=== PATIENT | female | born 1950 | race Caucasian/White ===

== ENCOUNTER → 2022-05-29 12:34 | Outpatient (BNVA) | payer MEDICARE, OTHER, SELFPAY | PROVIDERS: PCP Internal Medicine; Referring Provider Family Medicine; Visit Provider Internal Medicine Cardiovascular Disease | DX: R69 Illness, unspecified (principal) | CPT/HCPCS: 93005; 99203 ==

== ENCOUNTER → 2022-05-29 12:34 | Outpatient (BNVA) | payer MEDICARE, OTHER, SELFPAY | PROVIDERS: PCP Internal Medicine; Referring Provider Family Medicine; Visit Provider Internal Medicine Cardiovascular Disease | DX: R00.2 Palpitations (principal); I10 Essential (primary) hypertension | CPT/HCPCS: 93005; 99203 ==

== ENCOUNTER → 2022-05-29 12:34 | Outpatient (BNVA) | payer MEDICARE, OTHER, SELFPAY | PROVIDERS: PCP Internal Medicine; Referring Provider Family Medicine; Visit Provider Internal Medicine Cardiovascular Disease | DX: R69 Illness, unspecified (principal) ==

== ENCOUNTER 2022-05-29 12:55 | Outpatient (CLI) | payer MEDICARE, OTHER, SELFPAY ==
--- NOTE | 2022-05-29 12:45 | RT.EKG_ITS ---
APPROVED REPORT Exam: Resting ECG Reason for Exam: NPW, Baseline needed Patient Location: O HR:50 bpm ECG Measurements Heart Rate 50 AXIS ND 169 P 63 QRSd 123 QRS -27 QT 423 T 31 QTc 386 Conclusion LAFB Poor R wave progression Sinus bradycardia
== END 2022-05-29 12:56 | disposition home or self-care (01) ==
LOC: DI.CARD 12:55
PROVIDERS: PCP Internal Medicine; Visit Provider Internal Medicine Cardiovascular Disease
DX: I10 Essential (primary) hypertension (principal); R94.31 Abnormal electrocardiogram [ECG] [EKG]; R00.1 Bradycardia, unspecified; R00.2 Palpitations
CPT/HCPCS: 93010

== ENCOUNTER 2023-10-30 12:33 | Emergency (ER) | payer MEDICARE, OTHER, SELFPAY ==
[2023-10-30 12:43] VITALS: BP 163/65; PULSE 77; RESP 18; TEMP 36.8; O2SAT 99
--- NOTE | 2023-10-30 13:00 | DI.CT_ITS ---
Exam(s) CT HEAD WO EXAM: CT HEAD WO CLINICAL HISTORY: frontal headache, r/o bleed/mass. TECHNIQUE: Imaging Protocol: Axial computed tomography images with coronal and sagittal reformatted images were created and reviewed COMPARISON: No exams were available for comparison FINDINGS: There are no skull fractures. There is no fluid in the visualized paranasal sinuses. Calcified and s lightly diminished size right orbital globe noted There is no evidence of intracranial hemorrhage, mass effect, or shift of midline structures. There are no extra-axial fluid collections. The ventricles are not enlarged or shifted and there is no blo od within the ventricular system nor within the basal cisterns. Mild symmetrical bifrontal atrophy noted. IMPRESSION: No acute intracranial findings on this noninfused CT scan of the brain. Mild bifrontal symmetrical atrophy evident. Peripherally calcified and diminished size right orbital globe noted. Left orbit appears unremarkabl e. Called by myself to ER physician RADIATION DOSE DELIVERED: 784.86mGy.cm Total DLP DATA REPOSITORY: All CT scans at this facility are submitted to the National Radiology Data Registry (NRDR) Dose Index Registry (DIR) with the [employer] ([employer]). RADIATION OPTIMIZATION: All CT scans at this facility use at least one of these dose optimization te chniques: automated exposure control; mA and/or kV adjustment per patient size (includes targeted exa ms where dose is matched to clinical indication); or iterative reconstruction.
[2023-10-30] MEDS: methylPREDNISolone SUCC 125 MG VIAL IVP (13:18)
[2023-10-30] MEDS: diphenhydrAMINE 50 MG/ML VIAL 25 MG IVP (13:18)
[2023-10-30] MEDS: Prochlorperazine 10 MG/2 ML VIAL IVP (13:19)
[2023-10-30] MEDS: Acetaminophen 500 MG TAB 1000 MG PO (13:19)
[2023-10-30 13:37] LABS: Abs Immature Grans 0.01 10^3/uL (0.0-0.06); Absolute Basophil Count 0.04 10^3/uL (0.0-0.2); Absolute Eosinophil Count 0.04 10^3/uL (0.0-0.7); Absolute Lymphocyte Count 2.06 10^3/uL (1.2-3.4); Absolute Monocyte Count 0.58 10^3/uL (0.1-0.8); Absolute Neutrophil Count 3.16 10^3/uL (1.2-6.7); Basophils % 0.7; Eosinophils % 0.7; HCT 38.6 % (36.0-46.0); Immature Grans % 0.2; MCH 29.4 pg (27.0-33.0); MCHC 33.7 % (32.0-36.0); MCV 87 fL (80-95); MPV 9.8 fL (8.0-11.0); Monocytes % 9.8; Neutrophils % 53.6; Platelet Count 277 10^3/uL (130-400); RBC 4.42 10^6/uL (3.93-5.22); RDW 13.3 % (11.7-14.6); RDW-SD 42.9 fL; WBC 5.89 10^3/uL (4.4-10.8)
[2023-10-30 13:52] LABS: ALT 37 U/L (14-59); AST 24 U/L (15-37); Albumin 4.3 g/dL (3.4-5.0); Alkaline Phosphatase 75 U/L (46-116); Anion Gap 11.3 mmol/L (3-11); BUN 12 mg/dL (7-18); Bilirubin, Total 0.4 mg/dL (0.2-1.0); CO2 25.7 mmol/L (21.0-32.0); CREATININE 1.1 mg/dL (0.55-1.02); Calcium 9.1 mg/dL (8.5-10.1); Chloride 104 mmol/L (98-107); Glucose 111 mg/dL (74-106); Potassium 3.8 mmol/L (3.5-5.1); Sodium 141 mmol/L (136-145); Total Protein 7.6 g/dL (6.4-8.2)
--- NOTE | 2023-10-30 14:14 | ED.GENADUL_ITS ---
HPI General Date/Time Provider Initiated Documentation: 10/30/23 12:43 . HPI Narrative: 73-year-old female with a past medical history of chronic headaches, who is currently being treated for an ear infection with Augmentin, was past medical history of high cholesterol, diabetes, who is currently on Topamax for migraines. And had previously been on amitriptyline but this had been stopped. Who presents today for evaluation of headache. Patient states that for the last 2 to 3 months she has had a recurrence of her previous headaches. She has had an MRI in the past at [facility] which was relatively unremarkable. Patient states that for the past few weeks she has been having an increase in her headaches, she states that they will occasionally wake her up during the night. She will also have extremely atypical dreams hearing singing amongst other things when these headaches and episodes occur. Patient states that her sleeping has also become erratic after she was given some Valium a few days ago at recent ER visit at [facility]. She did have a workup just the other day at [facility] evaluating for esophagitis, which led to an unremarkable CAT scan and workup otherwise. Patient states that her headache that developed this morning has been longer lasting than normal. It is continued and is present in the front of her head. She denies any significant posterior pain or neck pain. She denies any fever or chills. No trauma. No other complaints at this time. She has been taking the Topamax as directed, as well as baclofen without any significant improvement. Related Data Home Medications Medication Instructions Recorded Confirmed amlodipine 5 mg tablet 10 mg PO DAILY 04/10/22 10/30/23 atorvastatin 10 mg tablet 10 mg PO DAILY 04/10/22 10/30/23 baclofen 5 mg tablet 10 mg PO QID 04/10/22 10/30/23 clonidine HCl 0.2 mg tablet 0.3 mg PO BID 04/10/22 10/30/23 esomeprazole magnesium 20 mg 20 mg PO DAILY 04/10/22 10/30/23 capsule,delayed release metformin 500 mg tablet 500 mg PO BID 05/29/22 10/30/23 Allergies Allergy/AdvReac Type Severity Reaction Status Date / Time diltiazem Allergy Verified 10/30/23 12:52 lisinopril Allergy Verified 10/30/23 12:52 omeprazole Allergy Verified 10/30/23 12:52 pantoprazole Allergy Verified 10/30/23 12:52 Sulfa (Sulfonamide Allergy Verified 10/30/23 12:52 Antibiotics) General Stated Complaint: Headache EDGARDO: 3 Review of Systems All systems reviewed & are unremarkable except as noted in HPI and below Exam Narrative Exam Narrative: 1.Const: Well-nourished, Well-developed, appearing stated age 2.Eyes: Patient's right eye demonstrates exotropia, chronic clouding and atypical pupillary movement. Left eye unremarkable 3.ENT: Atraumatic external nose and ears. Moist MM. Neck: Symmetric, trachea midline, No thyromegaly. Patient demonstrates good movement of cervical neck. There is no nuchal rigidity, no nuchal tenderness. Patient is able to flex the neck without any difficulty or significant pain. Negative Kernig's and Brudzinski sign. No evidence of significant otitis media. No bulging or effusion of the tympanic membranes. 4.CVS: +S1/S2, No murmurs or gallops. Peripheral pulses 2+ and equal in all extremities. Brisk capillary refill in all extremities. 5.RESP: Unlabored respiratory effort. Clear to auscultation bilaterally. No wheezes rales or rhonchi 6.GI: Soft, Nontender/Nondistended, No hepatosplenomegaly. No guarding or rebound. 7.MSK: Normocephalic/Atraumatic, Extremities w/o deformity or ttp No cyanosis or clubbing, Normal movement of all extremities 8.Skin: Warm, Dry. No rashes or lesions. 9.Neuro: room attendant II-XII grossly intact. Sensation grossly intact, no focal neurologic deficits. All 6 cardinal planes of vision are fully intact. No evidence of rotatory or vertical nystagmus. The patient demonstrated a normal [id number], good dexterity. There was no evidence of dysdiadochokinesia. Patient was able to ambulate without difficulty. There was no wide-based gait. Romberg testing was normal. Wlgk-[id number]-ghgm testing was normal. Sensation was intact bilaterally as well as muscle strength bilaterally for all extremities. Patient was able to verbalize butter cup with no slurring, or miss pronunciation. 10.Psych: (AAO) x3. Appropriate mood and affect Course Vital Signs Vital signs: Vital Signs Temperature 36.8 C 10/30/23 12:43 Pulse 77 10/30/23 12:43 Respiratory Rate 18 10/30/23 12:43 Blood Pressure 163/65 H 10/30/23 12:43 Pulse Oximetry 99 10/30/23 12:43 Temperature 36.8 C 10/30/23 12:43 Temperature Source Oral 10/30/23 12:43 Pulse 77 10/30/23 12:43 Respiratory Rate 18 10/30/23 12:43 Respiratory Effort Normal 10/30/23 12:50 Blood Pressure 163/65 H 10/30/23 12:43 Pulse Oximetry 99 10/30/23 12:43 Oxygen Delivery Method Room Air 10/30/23 12:43 Oxygen Flow Rate 0 10/30/23 12:43 Lab/Test Results Lab/Test Results: Laboratory Tests Range/Units 10/30/23 13:25 WBC (4.4-10.8) 10^3/uL 5.89 RBC (3.93-5.22) 10^6/uL 4.42 Hgb (11.2-15.7) g/dL 13.0 Hct (36.0-46.0) % 38.6 MCV (80-95) fL 87 MCH (27.0-33.0) pg 29.4 MCHC (32.0-36.0) % 33.7 RDW (11.7-14.6) % 13.3 Plt Count (130-400) 10^3/uL 277 MPV (8.0-11.0) fL 9.8 Immature Gran % 0.2 Neutrophils % 53.6 Lymphocytes % 35.0 Monocytes % 9.8 Eosinophils % 0.7 Basophils % 0.7 Nucleated RBC % (0.0-0.3) % 0.0 Absolute Neutrophils (1.2-6.7) 10^3/uL 3.16 Absolute Lymphocytes (1.2-3.4) 10^3/uL 2.06 Absolute Monocytes (0.1-0.8) 10^3/uL 0.58 Absolute Eosinophils (0.0-0.7) 10^3/uL 0.04 Absolute Basophils (0.0-0.2) 10^3/uL 0.04 Sodium (136-145) mmol/L 141 Potassium (3.5-5.1) mmol/L 3.8 Chloride (98-107) mmol/L 104 Carbon Dioxide (21.0-32.0) mmol/L 25.7 Anion Gap (3-11) mmol/L 11.3 H BUN (7-18) mg/dL 12 Creatinine (0.55-1.02) mg/dL 1.1 H Est GFR (CKD-EPI 2020) (mL/min/1.73m2) 52.40 Glucose (74-106) mg/dL 111 H Calcium (8.5-10.1) mg/dL 9.1 Total Bilirubin (0.2-1.0) mg/dL 0.4 AST (15-37) U/L 24 ALT (14-59) U/L 37 Alkaline Phosphatase (46-116) U/L 75 Total Protein (6.4-8.2) g/dL 7.6 Albumin (3.4-5.0) g/dL 4.3 Medical Decision Making 73-year-old female with a past medical history of chronic headaches, who is currently being treated for an ear infection with Augmentin, was past medical history of high cholesterol, diabetes, who is currently on Topamax for migraines. And had previously been on amitriptyline but this had been stopped. Who presents today for evaluation of headache. Patient states that for the last 2 to 3 months she has had a recurrence of her previous headaches. She has had an MRI in the past at [facility] which was relatively unremarkable. Patient states that for the past few weeks she has been having an increase in her headaches, she states that they will occasionally wake her up during the night. She will also have extremely atypical dreams hearing singing amongst other things when these headaches and episodes occur. Patient states that her sleeping has also become erratic after she was given some Valium a few days ago at recent ER visit at [facility]. She did have a workup just the other day at [facility] evaluating for esophagitis, which led to an unremarkable CAT scan and workup otherwise. Patient states that her headache that developed this morning has been longer lasting than normal. It is continued and is present in the front of her head. She denies any significant posterior pain or neck pain. She denies any fever or chills. No trauma. No other complaints at this time. She has been taking the Topamax as directed, as well as baclofen without any significant improvement. Exam demonstrates well-appearing female, no temporal artery tenderness. No evidence of otitis media or other significant internal ear abnormality. No mastoid tenderness. No nuchal rigidity or meningeal mass. 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 No acute changes there. The remainder of her exam is unremarkable. Symptoms appear clinically inconsistent with me ningitis. No fever or chills. No evidence of acute angle-closure glaucoma clinically. No eye pain. No neurologic deficits to suggest major hemorrhage or mass or stroke. Differential does include potential tumor, chronic subdural, or chronic migraines. We will get a CT scan to rule out these etiologies as well as laboratory workup to evaluate for signs of electrolyte abnormality or elevated white count. Will monitor closely and reassess. 3:[address] scan demonstrates no evidence of acute process. No acute intracranial etiology. Migraine cocktail was given of Compazine, steroids, Tylenol, Benadryl, patient feels much better after this and headache has resolved. Symptoms appear inconsistent with tumor, no clinical evidence of meningitis whatsoever. Patient looks well otherwise. Suspect the symptoms are secondary to migraines. With resolution of headache at this time I do feel that discharge is appropriate. I did contact the daughter Vidhi and discussed the case with her also. Recommend close outpatient follow-up. She does have an MRI scheduled for early November within the next few weeks. Recommend further discussion with PCP for potential abortive medications for her suspected migraine headaches. I have extensively reviewed the treatment plan and discharge instructions with the patient and their family. I have addressed all patient concerns at this time. The patient and family was made aware of what symptoms to monitor for that would warrant a return to the emergency department. Discussed the plan with the patient and family, they demonstrate verbal understanding and agreement with our assessment and plan at this time. The documentation in this chart was dictated using bVisual dictation software. Please excuse any dictation errors. FINDINGS: There are no skull fractures. There is no fluid in the visualized paranasal sinuses. Calcified and slightly diminished size right orbital globe noted There is no evidence of intracranial hemorrhage, mass effect, or shift of midline structures. There are no extra-axial fluid collections. The ventricles are not enlarged or shifted and there is no blood within the ventricular system nor within the basal cisterns. Mild symmetrical bifrontal atrophy noted. IMPRESSION: No acute intracranial findings on this noninfused CT scan of the brain. Mild bifrontal symmetrical atrophy evident. Peripherally calcified and diminished size right orbital globe noted. Left orbit appears unremarkable. Called by myself to ER physician Quality:SDOH Health Related Social Needs: No Data to Display PFSH All Active Problems Headache (Acute) Medical History Normal esophagogastroduodenoscopy (EGD) Hyperglycemia Gastroduodenitis HTN (hypertension) Blind right eye Migraine headache with aura Insomnia Dyslipidemia Palpitations Surgical History History of esophagogastroduodenoscopy (EGD) Hx of appendectomy Hx of tubal ligation H/O plastic surgery Family History Brother Cancer Social History Smoking/Tobacco Use Status: Former Tobacco Use Smoking risk assessment performed?: Yes Alcohol Intake: never Substance use type: does not use Housing: house Discharge Plan Disposition Patient Disposition: Home Discharge Details Clinical Impression: Headache Primary Care Provider: Honorio Brown ED Provider: Benjamin Beck Home Meds and New Rx's Prescriptions: No Action metformin 500 mg tablet 500 mg PO BID amlodipine 5 mg tablet 10 mg PO DAILY atorvastatin 10 mg tablet 10 mg PO DAILY baclofen 5 mg tablet 10 mg PO QID clonidine HCl 0.2 mg tablet 0.3 mg PO BID esomeprazole magnesium 20 mg capsule,delayed release(DR/EC) 20 mg PO DAILY Discharge Instructions Instructions: General Headache (ED) Additional Instructions: At this time your workup has returned reassuring. Your CAT scan shows no evidence of bleed, tumor/mass,, or other significant abnormality. Your blood work is reassuring. Your symptoms are thankfully inconsistent with stroke, meningitis, or other significant abnormality. Please stay well-hydrated. Please continue with your current planned MRI this month. Please take Tylenol as needed for pain. Please follow-up closely with your primary care provider for further discussion of potential long-term abortive medications for potential migraine. If you notice any worsening of your symptoms, or any new symptoms such as vomiting, diarrhea, fever, chills, shortness of breath, chest pain, numbness, weakness, or fainting , please return immediately to the emergency department for reevaluation. Please follow up with your primary care provider as soon as possible for reassessment and reevaluation. As always, it was a pleasure participating in your medical care today. Referrals: Honorio Brown [Primary Care Provider] -
[2023-10-30 14:18] VITALS: BP 154/73; PULSE 76; RESP 16; O2SAT 100
== END 2023-10-30 14:38 | disposition home or self-care (01) ==
PROVIDERS: Emergency Provider Student in an Organized Health Care Education/Training Program; PCP Internal Medicine
DX: R51.9 Headache, unspecified (principal); I10 Essential (primary) hypertension; E78.5 Hyperlipidemia, unspecified; E11.9 Type 2 diabetes mellitus without complications; Z79.84 Long term (current) use of oral hypoglycemic drugs; Z87.891 Personal history of nicotine dependence
CPT/HCPCS: 80053; 96374; 96375; 99284; 70450; 85025; J0780; J1200; J2930